=== PATIENT | male | born 1950 | race American Indian/Alaskan Native ===

== ENCOUNTER 2021-03-26 17:24 | Emergency (ER) | payer MEDICARE ==
[2021-03-26 20:07] LABS: Eosinophils # (Auto) 0.3 K/mm3 (0.0-0.4); Eosinophils % (Auto) 4.1 % (0.0-4.3); Hematocrit 40.7 % (35.5-45.6); Hemoglobin 13.6 gm/dl (11.8-15.2); Lymphocytes # (Auto) 2.1 K/mm3 (1.2-5.4); Lymphocytes % (Auto) 32.6 % (13.4-35.0); Mean Corpuscular HGB Conc 33 % (32-34); Mean Corpuscular Volume 95 fl (84-94); Monocytes # (Auto) 0.6 K/mm3 (0.0-0.8); Monocytes % (Auto) 9.4 % (0.0-7.3); Platelet Count 174 K/mm3 (140-440); Red Blood Count 4.31 M/mm3 (3.65-5.03); Red Cell Distribution Width 13.4 % (13.2-15.2)
[2021-03-26 20:09] LABS: Alanine Aminotransferase 13 units/L (7-56); Albumin 4.6 g/dL (3.9-5); Blood Urea Nitrogen 9 mg/dL (9-20); Calcium 10.3 mg/dL (8.4-10.2); Hemolysis Index 51
[2021-03-26 20:14] LABS: BUN/Creatinine Ratio 13
[2021-03-27 01:20] VITALS: BP 126/57
--- NOTE | 2021-03-27 01:24 | Emergency Department Report ---
- General Chief complaint: Dizziness Stated complaint: DIZZY/BLURRED VISION Time Seen by Provider: 03/27/21 00:15 Source: patient Mode of arrival: Ambulatory Limitations: No Limitations - History of Present Illness Initial comments: Patient is a 70-year-old gentleman who is presenting with weakness when he stands over the last 3 weeks. Patient states he feels though both of his legs are going to give out at any moment. He denies any pain swelling or trauma. He states he has had 2-3 episodes where he will get extremely dizzy as well which last approximately 5 to 10 minutes. States that resolved spontaneously. Has palpitations when this is occurring. He denies any dizziness with standing but does states he feels like his legs are made of lead. Denies chest pain short ness of breath cough cold congestion myalgias fevers or chills. - Related Data Allergies Allergy/AdvReac Type Severity Reaction Status Date / Time metformin Allergy Unknown Verified 03/26/21 17:54 ED Review of Systems ROS: Stated complaint: DIZZY/BLURRED VISION Other details as noted in HPI Constitutional: denies: chills, fever Eyes: denies: eye pain, eye discharge, vision change ENT: denies: ear pain, throat pain Respiratory: denies: cough, shortness of breath, wheezing Cardiovascular: denies: chest pain, palpitations Endocrine: no symptoms reported Gastrointestinal: denies: abdominal pain, nausea, diarrhea Genitourinary: denies: urgency, dysuria Musculoskeletal: denies: back pain, joint swelling, arthralgia Skin: denies: rash, lesions Neurological: weakness, vertigo. denies: headache, numbness, paresthesias, confusion Psychiatric: denies: anxiety, depression Hematological/Lymphatic: denies: easy bleeding, easy bruising ED Past Medical Hx - Past Medical History Hx Diabetes: Yes - Surgical History Additional Surgical History: double bypass surgery ED Physical Exam - General Limitations: No Limitations General appearance: alert, in no apparent distress - Head Head exam: Present: atraumatic, normocephalic - Eye Eye exam: Present: normal appearance - ENT ENT exam: Present: mucous membranes moist - Neck Neck exam: Present: normal inspection - Respiratory Respiratory exam: Present: normal lung sounds bilaterally. Absent: respiratory distress, wheezes, rales, rhonchi - Cardiovascular Cardiovascular Exam: Present: regular rate, normal rhythm. Absent: systolic murmur, diastolic murmur, rubs, gallop - GI/Abdominal GI/Abdominal exam: Present: soft, normal bowel sounds - Rectal Rectal exam: Present: deferred - Extremities Exam Extremities exam: Present: normal inspection - Back Exam Back exam: Present: normal inspection - Neurological Exam Neurological exam: Present: alert, oriented X3 - Psychiatric Psychiatric exam: Present: normal affect, normal mood - Skin Skin exam: Present: warm, dry, intact, normal color. Absent: rash - Level of Consciousness 1a. Level of Consciousness: alert/keenly responsive - LOC Questions 1b. LOC Questions: answers both correctly - LOC Command 1c. LOC Commands: performs tasks correctly - Best Gaze 2. Best Gaze: normal - Visual 3. Visual: no visual loss - Facial Palsy 4. Facial Palsy: normal symmetrical movement - Motor Arm 5a. Motor Arm Left: no drift 5b. Motor Arm Right: no drift - Motor Leg 6a. Motor Leg Left: no drift 6b. Motor Leg Right: no drift - Limb Ataxia 7. Limb Ataxia: absent - Sensory 8. Sensory: normal - Best Language 9. Best Language: no aphasia - Dysarthria 10. Dysarthria: normal - Extinction and Inattention 11. Extinction/Inattention: no abnormality - Scoring Total Score: 0 Stroke Severity: No Stroke Symptoms ED Course Vital Signs 03/26/21 03/27/21 17:50 01:05 Temperature 98.5 F Pulse Rate 65 72 Respiratory 20 17 Rate Blood Pressure 119/59 126/57 [Right] O2 Sat by Pulse 100 98 Oximetry ED Medical Decision Making - Lab Data Result diagrams: 03/26/21 19:34 03/26/21 19:34 Lab Results 03/26/21 03/26/21 Range/Units 19:34 19:34 WBC 6.6 (4.5-11.0) K/mm3 RBC 4.31 (3.65-5.03) M/mm3 Hgb 13.6 (11.8-15.2) gm/dl Hct 40.7 (35.5-45.6) % MCV 95 H (84-94) fl MCH 32 (28-32) pg MCHC 33 (32-34) % RDW 13.4 (13.2-15.2) % Plt Count 174 (140-440) K/mm3 Lymph % (Auto) 32.6 (13.4-35.0) % Perkins % (Auto) 9.4 H (0.0-7.3) % Eos % (Auto) 4.1 (0.0-4.3) % Baso % (Auto) Volunteer Services Supervisor Lymph # (Auto) 2.1 (1.2-5.4) K/mm3 Perkins # (Auto) 0.6 (0.0-0.8) K/mm3 Eos # (Auto) 0.3 (0.0-0.4) K/mm3 Baso # (Auto) 0.0 (0.0-0.1) K/mm3 Seg Neutrophils % 53.5 (40.0-70.0) % Seg Neutrophils # 3.5 (1.8-7.7) K/mm3 Sodium 136 L (137-145) mmol/L Potassium 4.8 (3.6-5.0) mmol/L Chloride 100.9 (98-107) mmol/L Carbon Dioxide 22 (22-30) mmol/L Anion Gap 18 mmol/L BUN 9 (9-20) mg/dL Creatinine 0.7 L (0.8-1.3) mg/dL Estimated GFR > 60 ml/min BUN/Creatinine Ratio 13 % Glucose 108 H (75-100) mg/dL Calcium 10.3 H (8.4-10.2) mg/dL Total Bilirubin 0.50 (0.1-1.2) mg/dL AST 23 (5-40) units/L ALT 13 (7-56) units/L Alkaline Phosphatase 77 (35-129) units/L Troponin T < 0.010 (0.00-0.029) ng/mL Total Protein 8.0 (6.3-8.2) g/dL Albumin 4.6 (3.9-5) g/dL Albumin/Globulin Ratio 1.4 % - Radiology Data [facility] [address] [place] [address] Cat Scan Report Signed Patient: MCKAYLA NORIEGA MR#: [id number] : 1950 Acct:[id number] Age/Sex: 70 / M ADM Date: 03/26/21 Loc: ED Attending Dr: Ordering Physician: JACKELYN SNOW MD Date of Service: 03/27/21 Procedure(s): CT head/brain wo con Accession Number(s): [id number] cc: JACKELYN SNOW MD CT head without contrast INDICATION : unsteady gait. TECHNIQUE: Axial imaging performed from the skull apex through the skull base without the use of contrast. All CT scans at this location are performed using CT dose reduction for ALARA by means of automated exposure control. COMPARISON: None FINDINGS: Parenchyma: Negative for mass, stroke or hemorrhage. Diffuse cerebral atrophy. Low density within the periventricular white matter is typical of chronic small vessel ischemic change. Ventricles: Mild ventricular dilatation on the basis of atrophy. Soft tissues: Soft tissues including the orbits appear normal. Bones: No acute osseous abnormality. Sinuses: Sinuses and mastoid air cells are clear. IMPRESSION: Chronic changes of atrophy and small vessel ischemia. Signer Name: William Morton MD Signed: 03/27/2021 1:22 AM Workstation Name: [id number] - Medical Decision Making Patient is vital signs within normal limits. Orthostatics were negative. Patient had good coordination with [id number]. No weakness was found his NIH is 0. Unsteadiness on his feet may be due to microvascular disease seen on CT. Patient given a neurologist for follow-up. Patient also given cardiology regarding the dizzy episodes that the patient had several days ago Critical care attestation.: If time is entered above; I have spent that time in minutes in the direct care of this critically ill patient, excluding procedure time. ED Disposition Clinical Impression: Cerebral microvascular disease, Dizziness Disposition: DC-01 TO HOME OR SELFCARE Is pt being admited?: No Does the pt Need Aspirin: No Condition: Stable Instructions: Dizziness Referrals: VICENTE JOYCE MD [Referring] - 3-5 Days ARMANDO RAMOS MD [Staff Physician] - 3-5 Days Time of Disposition: 01:34
--- NOTE | 2021-03-27 01:26 | Cat Scan Report ---
CT head without contrast INDICATION : unsteady gait. TECHNIQUE: Axial imaging performed from the skull apex through the skull base without the use of con trast. All CT scans at this location are performed using CT dose reduction for ALARA by means of aut omated exposure control. COMPARISON: None FINDINGS: Parenchyma: Negative for mass, stroke or hemorrhage. Diffuse cerebral atrophy. Low density within th e periventricular white matter is typical of chronic small vessel ischemic change. Ventricles: Mild ventricular dilatation on the basis of atrophy. Soft tissues: Soft tissues including the orbits appear normal. Bones: No acute osseous abnormality. Sinuses: Sinuses and mastoid air cells are clear. IMPRESSION: Chronic changes of atrophy and small vessel ischemia. Signer Name: William Morton MD Signed: 03/27/2021 1:22 AM Workstation Name: [id number]
--- NOTE | 2021-03-29 11:10 | Electrocardiograph Report ---
[facility] Test Date: 2021-03-26 Test Time: 18:09:08 Pat Name: MCKAYLA NORIEGA Department: Room: Gender: M Clinical Project Leader: : 1950 Requested By: ALLISON PERRY Order Number: [id number] Reading MD: Jose Day Measurements Intervals [place] Rate: 58 P: 48 TX: 168 QRS: 34 QRSD: 86 T: 53 QT: 414 QTc: 408 Interpretive Statements Sinus bradycardia No previous ECG available for comparison Electronically Signed On 03-29-2021 11:09:58 EDT by Jose Day
== END 2021-03-27 01:42 | disposition home or self-care (01) ==
LOC: ED 17:24
DX: I67.9 Cerebrovascular disease, unspecified (principal); R42 Dizziness and giddiness; E11.9 Type 2 diabetes mellitus without complications; Z98.890 Other specified postprocedural states; Z88.8 Allergy status to other drugs, medicaments and biological substances
CPT/HCPCS: 36415; 70450; 80053; 84484; 85025; 93005